=== PATIENT | female | born 1965 | race Caucasian/White ===

== ENCOUNTER → 2018-04-12 | Day surgery (SDC) | payer BC ==
[~2018-04-12] MED LIST: AMLODIPINE-VALSARTAN PO; JINTELI 1 MG-51 EACH PO; MIDAZOLAM HCL 2 MG/2 ML VIAL ONE; TYLENOL; VALTREX500 MG PO; VITAMIN C
--- NOTE | 2018-04-12 21:04 | Operative Report ---
DATE OF PROCEDURE: April 12, 2018 REFERRING PHYSICIAN: Dr. Saeed Concepcion. PROCEDURE PERFORMED: Colonoscopy and polypectomy. INDICATIONS FOR COLONOSCOPY: Colorectal cancer screening. MEDICATION: Patient was done under MAC. Please see anesthesiologist's note. PROCEDURE: With the patient in left lateral decubitus position, flexible fiberoptic Olympus colonoscope was inserted into the rectum with ease and advanced all the way to the cecum. It was then withdrawn slowly. Mucosa overlying the cecum, ascending colon, transverse colon, and descending colon appeared to be within normal limits. One polyp was hot biopsied from the sigmoid colon and 1 polyp was hot biopsied from the rectum. The scope was then retroflexed into the distal rectum and small internal hemorrhoids were noted, none of which was actively bleeding. The scope was then straightened out and was subsequently withdrawn. Patient tolerated the procedure well. IMPRESSION 1. Sigmoid colon polyp, hot biopsied. 2. Rectal polyp, hot biopsied. 3. Internal hemorrhoids, none actively bleeding. PLAN: Follow up histology. Initiate high-fiber, low-fat diet. Initiate high-fiber supplement. Patient might benefit from a followup colonoscopy in 3 to 5 years. Job#: [id number] VAS cc:DR SAEED CONCEPCION
--- OUTSIDE RECORDS SUMMARY | 2018-04-14 11:11 | XMS REPORT ---
Author Author [facility] Address Unknown Phone Unavailable Care Team Providers Care Manager Community Relations Name Role Phone OBED CONCEPCION Unavailable Unavailable Problems This patient has no known problems. Allergies, Adverse Reactions, Alerts This patient has no known allergies or adverse reactions. Medications This patient has no known medications. Results Test Description Test Time Test Comments Text Results Atomic Results Result Comments Stress Test - Treadmill ONLY [place] [id number] Patient Name : MELIZA BALTAZAR MR #: [id number] : 1965 Age/Sex: 51/F Adm Physician : OBED CONCEPCION DO Admit Date : Location : [place] Room/Bed : REPORT: Cardiology Report DATE OF STUDY: March 29, 2017 NUCLEAR STRESS REPORT PROCEDURE TITLE: Rest/stress single isotope SPECT imaging with exercise stress and gated SPECT imaging. INDICATIONS: Abnormal EKG. PROCEDURE: The patient performed treadmill exercise using a Scott protocol, exercising for 8 minutes 1 second to stage 3 and completing an estimated workload of 10.1 metabolic equivalents (METs). The test was terminated due to fatigue. The heart rate was 70 beats per minute at baseline and increased to 164 beats per minute at peak exercise, which was 98% of the maximum predicted heart rate. The rest blood pressure was 104/64 and increased to 156/50, which is a normal response. The patient did not develop any symptoms during the procedure. Resting electrocardiogram demonstrated normal sinus rhythm, poor R-wave progression. There were no ST segment changes consistent with myocardial ischemia. Myocardial perfusion imaging was performed at rest following the injection of 11 millicuries of tetrofosmin. At peak exercise, the patient was injected with 32.5 millicuries of tetrofosmin and exercise was continued for 1 minute. Gated post-stress tomographic imaging was performed. FINDINGS: The overall quality of the study is fair. Left ventricular cavity is noted to be normal size on the rest and stress studies. SPECT images demonstrate a homogeneous tracer distribution throughout the myocardium. Gated SPECT imaging reveals normal myocardial thickening and wall motion. The left ventricular ejection fraction was calculated to be 65%. IMPRESSION: 1. Normal clinical hemodynamic and ECG exercise stress test. 2. Myocardial perfusion imaging is normal. Overall left ventricular systolic function was normal without regional wall motion abnormalities. Job#: [id number] EV Signature Date Dictated By: REYES HUGHES MD Transcribed By: [facility] on 03/29/17 <Electronically signed by REYES HUGHES MD><<Signature on File>>04/11/17 1352 COPY TO: THYROID [place] [address] Patient Name: MELIZA BALTAZAR MR #: [id number] : 1965 Age/Sex: 51/F Req #: [id number] Adm Physician: Ordered by: OBED CONCEPCION DO Report #: [id number] Location: [place] Room/Bed: Procedure: [id number] US/US THYROID Exam Date: Exam Time: REPORT STATUS: Signed EXAM: Thyroid Ultrasound INDICATION: COMPARISON: Thyroid ultrasound dated 12/08/2010 TECHNIQUE: Transverse and sagittal images were obtained of the thyroid gland. FINDINGS: Thyroid gland: Size: Right lobe 5 x 1.4 x 1.6 cm, Normal in size Left lobe 4.5 x 1.2 x 1.3 cm, Normal in size Isthmus 0.2 cm, Normal in size Appearance: Heterogeneous echotexture without increased vascularity Masses/Nodules: Right: Stable 0.8 x 0.4 x 0.7 cm inferior pole solid isoechoic nodule with small peripheral cystic component. 0.7 x 0.4 x 0.6 cm midpole colloid cyst, appears the measured 0.5 x 0.3 x 0.5 cm. 0.8 x 0.5 x 0.7 cm inferior pole hypoechoic nodule with areas of calcification, not seen on prior exam. 0.4 x 0.4 x 0.5 cm superior pole cystic/solid nodule, not seen on prior exam. Left: 0.5 x 0.3 x 0.5 cm m id/superior pole solid heterogeneous hypoechoic nodule, previously 0.3 x 0.3 cm. 0.3 x 0.2 x 0.3 cm inferior pole hypoechoic nodule. 0.6 x 0.3 x 0.4 cm isthmus hypoechoic heterogeneous solid nodule with possible calcifications, previously 0.7 x 0.3 x 0.9 cm. Parathyroid: No focal parathyroid masses. IMPRESSION: Multiple bilateral subcentimeter nodules, as detailed above, some new when compared to ultrasound dated 12/08/2010. Recommend follow- up ultrasound in 6 months to ensure stability. Signed by: Dr. Mike Lorenzo MD on 03/29/2017 11:57 AM Dictated By: MIKE OLRENZO MD [id number] Transcribed By: REBEKAH on 03/29/17 4909 COPY TO: OBED CONCEPCION DO
== END | disposition home or self-care (01) ==
LOC: OR 07:51
PROVIDERS: ATTEND Internal Medicine Gastroenterology
DX: Z12.11 Encounter for screening for malignant neoplasm of colon (principal); K63.5 Polyp of colon; K62.1 Rectal polyp; K64.8 Other hemorrhoids; K59.09 Other constipation; E66.8 Other obesity; I10 Essential (primary) hypertension; B00.9 Herpesviral infection, unspecified; F41.9 Anxiety disorder, unspecified; Z01.810 Encounter for preprocedural cardiovascular examination; Z68.31 Body mass index [BMI] 31.0-31.9, adult
CPT/HCPCS: 45384; 93005; J2250

== ENCOUNTER → 2019-04-10 | Outpatient (CLI) | payer BC ==
[~2019-04-10] MED LIST changes: -MIDAZOLAM HCL 2 MG/2 ML VIAL ONE
--- NOTE | 2019-04-10 12:38 | Diagnostic Imaging Report ---
Thyroid ultrasound CPT code: 34238 History: Thyroid nodule Comparison: Thyroid ultrasound of 03/29/2017 Findings: The thyroid echotexture is normal. Vascularity is normal. The right lobe measures 5.0 x 1.8 x 1.8 cm. The left lobe measures 4.4 x 1.5 x 1.3 cm. The isthmus measures 0.4 cm. Nodules (measurements are AP, transverse, craniocaudal): Right Lobe: 1. Upper pole anechoic predominantly cystic well-circumscribed nodule measuring 9 x 5 x 6 mm. 2. Mid pole anechoic predominantly cystic well-circumscribed nodule measures 8 x 5 x 6 mm. 3. Lower pole isoechoic well-circumscribed solid nodule measures 9 x 6 x 8 mm. Left Lobe: Upper pole spongiform isoechoic well-circumscribed 6 x 7 x 5 mm nodule. Isthmus: No cystic mass or discrete solid nodule identified. Lymph Nodes: No cervical lymph nodes are identified. Parathyroids: Not visualized. IMPRESSION: Multiple subcentimeter bilateral thyroid nodules as above, none of which meet criteria for FNA. The most suspicious nodule (right lower pole TIRADS 4) can be followed at 1, 3, and 5 years by ultrasound. ACR glossary of thyroid rads TI-RADS 1: No focal lesion. TI-RADS 2: Not suspicious. TI-RADS 3: Mildly suspicious (recommend FNA is greater than or equal to 2.5 cm; follow-up at 1, 3, and 5 years if greater than or equal to 1.5 cm) TI-RADS 4: Moderately Suspicious (recommend FNA is greater than or equal to 1.5 cm; follow-up at 1, 2, 3, and 5 years) TI-RADS 5: Highly suspicious (recommend FNA is greater than or equal to 10 mm) TI-RADS 6: Biopsy-proven malignancy Signed by: Dodie Tenorio MD on 04/10/2019 12:34 PM
--- NOTE | 2019-04-10 20:41 | Myoview Stress Test ---
DATE OF STUDY: 04/10/2019 09:39:00 Stress Test - Treadmill ONLY PROCEDURE TITLE: Rest/stress single isotope SPECT imaging with exercise stress and gated SPECT imaging. PROCEDURE IN DETAIL: The patient performed treadmill exercise using a Scott protocol, exercising for 11 minutes 1 second to stage IV and completing estimated workload of 12.8 metabolic equivalents (METS). The heart rate was 74 beats per minute at rest, increased to 155 beats per minute at peak exercise, which was 94% of the maximum predicted heart rate. The resting electrocardiogram demonstrated normal sinus rhythm. There were no ST-segment changes suggestive of myocardial ischemia. Myocardial perfusion imaging was performed at rest following the injection of 11 mCi of tetrofosmin. At peak pharmacologic effect, the patient injected with 32 mCi of tetrofosmin and exercise was continued for 1 minute. Gated post-stress tomographic imaging was performed. FINDINGS: The overall quality of study is fair. Attenuation artifact is present. Left ventral cavity is noted to be normal size on the rest and stress studies. SPECT images demonstrate a medium-sized mild perfusion defect in the anterior wall that improves with stress. Gated SPECT imaging reveals normal myocardial thickening and wall motion. The left ventricular ejection fraction was calculated to be greater than 70%. IMPRESSION: Myocardial perfusion imaging is normal. There is a medium area of attenuation artifact in the anterior wall. Overall, left ventricular systolic function was normal without regional wall motion abnormalities. Kimberley Swartz MD ABS/MODL /[id number]
--- NOTE | 2019-04-10 22:16 | Consultation ---
DATE OF CONSULTATION: 04/10/2019 Cardiology Consultation REASON FOR CONSULTATION: Hypertension. HISTORY OF PRESENT ILLNESS: This is a 53-year-old woman with history of hypertension, who is referred for nuclear stress test. She denies any history of heart disease. The patient reports prior chest pain, but none currently at this time. Denies shortness breath, palpitations, orthopnea, or PND. She does note lower extremity edema with prolonged sitting or standing. REVIEW OF SYSTEMS: Negative except as per HPI. PAST MEDICAL HISTORY: Hypertension. PAST SURGICAL HISTORY: 1. Tonsillectomy. 2. Back surgery. 3. LASIK. ALLERGIES: NO KNOWN DRUG ALLERGIES. MEDICATIONS: Please see medication list. SOCIAL HISTORY: Denies tobacco or illicit drugs. Does drink alcohol occasionally. FAMILY HISTORY: Pertinent for father with three-vessel CABG at the age of 72. PHYSICAL EXAMINATION: VITAL SIGNS: Reviewed. GENERAL: Awake, alert, well-developed, well-nourished woman, no acute distress. HEENT: Normocephalic, atraumatic. Pupils equal. No scleral icterus. NECK: Supple. No thyromegaly or cervical lymphadenopathy. No carotid bruits. LUNGS: Clear to auscultation bilaterally. No wheeze or crackles. HEART: Normal rate, regular rhythm. No murmur. Normal S1, S2. ABDOMEN: Soft, nontender. EXTREMITIES: No edema. NEUROLOGIC: Nonfocal exam. LABORATORY DATA: None today. IMPRESSION: Hypertension, chest pain. RECOMMENDATIONS: We will proceed with treadmill nuclear stress test for further evaluation. Kimberley Swartz MD ABS/MODL /[id number]
== END ==
LOC: NM 07:52
PROVIDERS: ATTEND Family Medicine
DX: E04.2 Nontoxic multinodular goiter (principal)
CPT/HCPCS: 76536; 78452; 93017; 93306; A9502

== ENCOUNTER → 2020-03-25 | Outpatient (CLI) | payer BC | LOC: US 08:29 | PROVIDERS: ATTEND Family Medicine | DX: E04.2 Nontoxic multinodular goiter (principal) | CPT/HCPCS: 76536 ==

== ENCOUNTER → 2021-05-03 | Outpatient (CLI) | payer BC | LOC: US 07:40 | PROVIDERS: ATTEND Family Medicine | DX: E04.1 Nontoxic single thyroid nodule (principal); M51.26 Other intervertebral disc displacement, lumbar region | CPT/HCPCS: 72148; 76536 ==

== ENCOUNTER → 2022-02-20 | Outpatient (CLI) | payer BC | LOC: MRI 10:46 | PROVIDERS: ATTEND Family Medicine | DX: R51.9 Headache, unspecified (principal); H53.9 Unspecified visual disturbance | CPT/HCPCS: 70551; 76536 ==

== ENCOUNTER → 2025-02-05 | Day surgery (SDC) | payer BC ==
[~2025-02-05] MED LIST changes: +ATENOLOL50 MG PO; +HYOSCYAMINE SULFATE 0.5 MG/ML INJ ONE; +LIDOCAINE HCL 2% LOCAL INJ 5 ML SDV VIAL INJ ONE; +PROPOFOL IV EMULSION 10 MG/ML 20 ML VIAL ONE; +PROPOFOL IV EMULSION 50 ML IV ONE
[2025-02-05] MEDS: LACTATED RINGER'S 1,000 ML ONE (15:16)
[2025-02-05 17:49] VITALS: TEMP 97
[2025-02-05 18:10] VITALS: BP 108/72; PULSE 65; RESP 16; O2SAT 98
== END | disposition home or self-care (01) ==
LOC: OR 14:47
PROVIDERS: ATTEND Internal Medicine Gastroenterology
DX: Z09 Encounter for follow-up examination after completed treatment for conditions other than malignant neoplasm (principal); D12.2 Benign neoplasm of ascending colon; K57.30 Diverticulosis of large intestine without perforation or abscess without bleeding; K59.09 Other constipation; K64.8 Other hemorrhoids; I10 Essential (primary) hypertension; R00.1 Bradycardia, unspecified; B00.9 Herpesviral infection, unspecified; F41.9 Anxiety disorder, unspecified; Z01.810 Encounter for preprocedural cardiovascular examination; Z79.899 Other long term (current) drug therapy; Z68.24 Body mass index [BMI] 24.0-24.9, adult
CPT/HCPCS: 45385; 93005; J1980; J2003; J2704 ×2; J7121